=== PATIENT | female | born 2000 | race Caucasian/White ===

== ENCOUNTER 2020-09-03 12:44 | Emergency (ER) | payer OTHER, SELFPAY ==
--- NOTE | 2020-09-03 12:46 | ED.ALLEREA ---
HPI - Allergic Reaction General Chief complaint: Skin/Abscess/Foreign Body Stated complaint: RASH/LIPS SWELLING & NUMB/SORE THROAT Time Seen by Provider: 09/03/20 12:46 Source: patient and RN notes reviewed History of Present Illness HPI narrative: Patient is a 20-year-old female who presents the urgent care with complaints of poison linus, lip swelling and a scratchy throat. Patient states that she is been seen at another urgent care in her hometown a couple weeks ago and was told to use [id number] topical creams and an linus spray. Patient states that she has been using the [id number] medications without any improvement to the poison linus. Patient states that approximately 1 hour ago she started to have the scratchy throat and tingling in her lips. Patient does have blisters to the bottom lip. Denies of any new make-up, lip gloss, medications, creams, lotions or detergents. Patient denies of any new foods or any known allergies. Patient denies of any shortness of breath, cough or difficulty breathing. Patient does have a history of some anxiety and does take medication for ADHD. No other acute complaints. No acute distress noted. Patient aware of the plan of care. Some parts of this dictation were generated by voice recognition software and may contain typographical and/or grammatical inaccuracies. Related Data Home Medications Medication Instructions Recorded Confirmed albuterol sulfate 1 puff INHALATION PRN PRN 09/03/20 09/03/20 dextroamphetamine-amphetamine 20 mg PO DAILY 09/03/20 09/03/20 norethindrone-ethin estradiol 1 tablet PO DAILY 09/03/20 09/03/20 [Alyacen /35 ()] propranolol 10 mg PO DAILY 09/03/20 09/03/20 venlafaxine 37.5 mg PO DAILY 09/03/20 09/03/20 Allergies Allergy/AdvReac Type Severity Reaction Status Date / Time No Known Allergies Allergy Verified 09/03/20 12:58 Review of Systems Review of Systems: Narrative: CONSTITUTIONAL: Denies fever, chills, or sweats. EYES: Denies visual changes, redness, or discharge. ENT: Denies rhinorrhea, congestion, otalgia. Reports of scratchy throat and tingling in the lips CARDIOVASCULAR: Denies chest pain, palpitations, or edema. RESPIRATORY: Denies cough or dyspnea. GASTROINTESTINAL: Denies abdominal pain, nausea, vomiting, or diarrhea. GENITOURINARY: Denies dysuria or hematuria. SKIN: Reports of itchy poison linus to the torso and left lower arm MUSCULOSKELETAL: Denies back pain, joint pain, or myalgia. NEUROLOGIC: Denies headache, numbness, or weakness. All other systems reviewed are negative, except as documented in HPI. PMFSH Comments At the time of my signature, I reviewed and agree with the nursing past medical, surgical, social, and family history. There is no relevant family history pertinent to the patient complaint. Exam Narrative: Exam Narrative: GENERAL: This is a well-nourished, well-developed patient, in no apparent distress. HEAD: normocephalic, atraumatic. EYES: PERRL. Sclera clear/white. Vision is grossly intact. EARS: External ears normal, auditory canals clear and without drainage, TMs normal without perforation. Hearing grossly intact. NOSE: External nose normal with no obvious nasal discharge, nares without redness, no rhinorrhea. THROAT: Mucous membranes moist, posterior pharynx clear. No tonsillar edema, erythema, exudate. Scattered pinpoint blisters noted to the inside of the lower lip NECK: Neck supple, non-tender without lymphadenopathy, masses or thyromegaly. No notable soft tissue swelling upon swallowing. CARDIOVASCULAR: Regular rate and rhythm without murmurs, gallops, or rubs. RESPIRATORY: Clear to auscultation. Breath sounds equal bilaterally. No wheezes, rales, or rhonchi. SKIN: Scattered dried [place] dermatitis noted to the left lower arm and torso NEURO: awake, alert, and oriented to person, place and time. There were no obvious focal neurologic abnormalities. EXTREMITIES: No clubbing, cyanosis, or edema. Course Vital
[2020-09-03 12:54] VITALS: BP 137/94; PULSE 103; RESP 16; TEMP 37.1; O2SAT 99
[2020-09-03] MEDS: predniSONE 20 MG TABLET 60 MG PO (13:04)
== END 2020-09-03 13:10 | disposition home or self-care (01) ==
PROVIDERS: Emergency Provider Nurse Practitioner Family
DX: L23.7 Allergic contact dermatitis due to plants, except food (principal); J45.909 Unspecified asthma, uncomplicated; F32.9 Major depressive disorder, single episode, unspecified
CPT/HCPCS: 99213; G0463; J7512

== ENCOUNTER 2021-01-06 18:59 | Emergency (ER) | payer OTHER, SELFPAY ==
--- NOTE | 2021-01-06 19:03 | ED.GENADULT ---
HPI - General Adult General Chief complaint: Nausea/Vomiting/Diarrhea Stated complaint: NAUSEA Time Seen by Provider: 01/06/21 19:03 Source: patient, RN notes reviewed and old records reviewed Mode of arrival: ambulatory Limitations: no limitations History of Present Illness HPI narrative: 20-year-old female presents to the [facility] with complaints of nausea. Patient states on her aunt and sister were vomiting. She vomited on Tuesday. Has not vomited since. Has had nausea since. Patient states that on Tuesday she feverish but did not take her temperature. Denies chance of , last menstrual period 2 weeks ago. Denies any urinary symptoms, frequency, urgency or burning. Denies chest pain or abdominal pain. Related Data Home Medications Medication Instructions Recorded Confirmed albuterol sulfate 1 puff INHALATION PRN PRN 09/03/20 09/03/20 dextroamphetamine-amphetamine 20 mg PO DAILY 09/03/20 09/03/20 norethindrone-ethin estradiol 1 tablet PO DAILY 09/03/20 09/03/20 [Alyacen 1/35 ()] propranolol 10 mg PO DAILY 09/03/20 09/03/20 venlafaxine 37.5 mg PO DAILY 09/03/20 09/03/20 Allergies Allergy/AdvReac Type Severity Reaction Status Date / Time No Known Allergies Allergy Verified 09/03/20 12:58 Review of Systems Review of Systems: All systems reviewed & are unremarkable except as noted in HPI and below Constitutional: Constitutional: Reports no additional constitutional complaints, Denies chills and Denies fever(s) Eyes: Eyes: Reports no additional eye complaints ENT: Reports system reviewed and no additional complaints, except as documented Cardiovascular: Cardiovascular: Reports no additional cardiovascular complaints and Denies chest pain Respiratory: Respiratory: Denies cough and Denies dyspnea Gastrointestinal: Gastrointestinal: Reports as per HPI, Denies abdominal pain, Denies bloating, Denies constipation, Denies diarrhea, Reports nausea and Reports vomiting Genitourinary: Genitourinary: Reports no additional female genitourinary complaints Musculoskeletal: Musculoskeletal: Reports no additional musculoskeletal complaints Integumentary/Breasts: Skin/Breast: Reports system reviewed and no additional complaints, except as docu Neurologic: Reports system reviewed and no additional complaints, except as documented Psychiatric: Psychiatric: Reports no additional psychiatric complaints Allergic/Immunologic: Allergic/Immunologic: Reports no additional allergic/immunologic complaints PMFSH Past Medical History Medical History (Updated 01/06/21 @ 19:13 by Amisha Garcia) ADHD Tachycardia Surgical History Surgical History (Updated 01/06/21 @ 19:14 by Amisha Garcia) No significant past surgical history Social History Social History (Updated 01/06/21 @ 19:14 by Amisha Garcia) Living arrangements: with family Occupation/Education: student Gender identity (if verbalized by the patient): Female Comments At the time of my signature, I reviewed and agree with the nursing past medical, surgical, social, and family history. There is no relevant family history pertinent to the patient complaint. Exam Const: General: healthy appearing, no acute distress and alert Nutritional Appearance: well nourished Orientation/consciousness: patient oriented x3 Limitations: no limitations HENMT: Head: normal to inspection Ears: external ears normal Eyes: Conjunctivae: conjunctivae normal Pupils: Equal, round and reactive pupils present Neck: Neck: normal visual inspection, no lymphadenopathy and no meningeal signs Chest: Chest palpation & inspection: normal inspection of the chest Resp: Effort & Inspection: normal respiratory effort and no use of accessory muscles Auscultation: clear to auscultation bilaterally, no crackles, no rales, no rhonchi and no wheezes Cardio: Rate: regular rate Rhythm: regular rhythm GI: GI Palp: Yes Soft to palpation, No Tenderness to palpation pr
[2021-01-06 19:04] VITALS: BP 126/78; PULSE 97; RESP 12; TEMP 36.5; O2SAT 100
== END 2021-01-06 19:16 | disposition home or self-care (01) ==
PROVIDERS: Emergency Provider Nurse Practitioner
DX: R11.0 Nausea (principal)
CPT/HCPCS: 99213; G0463

== ENCOUNTER 2021-03-02 14:53 | Emergency (ER) | payer OTHER, SELFPAY ==
[2021-03-02 15:02] VITALS: BP 132/80; PULSE 92; RESP 16; TEMP 36.7; O2SAT 100
--- NOTE | 2021-03-02 15:15 | ED.SKABFB ---
HPI - Skin/Abscess/Foreign Bdy General Chief complaint: Skin/Abscess/Foreign Body Stated complaint: rash all over Time Seen by Provider: 03/02/21 15:05 Source: patient, RN notes reviewed and old records reviewed History of Present Illness HPI narrative: 20 year old female who resents to express care with complaints of rash to her upper abdomen and chest and also to her back for the past 2 weeks. Patient has red raised scattered rash to her chest and back which is not itchy and has no burning sensation to rash area. Patient reports that she went to [place] over [place] and she has been in tanning bed but denies no one else having rash. She denies any new medications, food, laundry products,lotions, body soap or any exposure to animals. Patient reports that she has applied some hydrocortisone to rash with no improvement. Related Data Home Medications Medication Instructions Recorded Confirmed albuterol sulfate 1 puff INHALATION PRN PRN 09/03/20 09/03/20 dextroamphetamine-amphetamine 20 mg PO DAILY 09/03/20 09/03/20 norethindrone-ethin estradiol 1 tablet PO DAILY 09/03/20 09/03/20 [Alyacen 1/35 ()] propranolol 10 mg PO DAILY 09/03/20 09/03/20 venlafaxine 37.5 mg PO DAILY 09/03/20 09/03/20 Allergies Allergy/AdvReac Type Severity Reaction Status Date / Time No Known Allergies Allergy Verified 09/03/20 12:58 Review of Systems Review of Systems: CONSTITUTIONAL: Denies fever, chills, or sweats. EYES: Denies visual changes, redness, or discharge. ENT: Denies rhinorrhea, congestion, sore throat, or otalgia. CARDIOVASCULAR: Denies chest pain, palpitations, or edema. RESPIRATORY: Denies cough or dyspnea. GASTROINTESTINAL: Denies abdominal pain, nausea, vomiting, or diarrhea. GENITOURINARY: Denies dysuria or hematuria. SKIN: Positive for rash to upper abdomen and back which does itch or burn. MUSCULOSKELETAL: Denies back pain, joint pain, or myalgia. NEUROLOGIC: Denies headache, numbness, or weakness. PSYCHIATRIC: Positive history of anxiety or depression. All systems reviewed & are unremarkable except as noted in HPI and below [facility] Past Medical History Medical History (Updated 03/02/21 @ 15:20 by Oralia Abdullahi NP) ADHD Anxiety Tachycardia Surgical History Surgical History (Updated 01/06/21 @ 19:14 by Amisha Garcia) No significant past surgical history Family History Family History (Updated 03/02/21 @ 16:32 by Oralia Abdullahi NP) Mother Asthma Social History Social History (Updated 03/02/21 @ 16:31 by Oralia Abdullahi NP) Smoking status: Never smoker Alcohol intake: current Alcohol use details: occasional social Substance use: never Living arrangements: with family Occupation/Education: student Gender identity (if verbalized by the patient): Female Comments At time of signature, agree with nursing past medical, surgical, social and family history. There is no relevant family history pertinent to the presenting complaint Exam Narrative: GENERAL: Well-appearing, well-nourished, and in no acute distress. HEAD: Normocephalic, atraumatic. EYES: PERRLA and EOMI. ENT: Nares clear, no rhinorrhea or epistaxis. Mucous membranes moist. TMs normal with good light reflex. Throat pink with no lesions or exudates or tonsillar enlargement. NECK: Supple. No lymphadenopathy CHEST: Clear to auscultation. No respiratory distress. SaO2 100% on room air HEART: Regular rate and rhythm. No murmur heard. Normal peripheral pulses. ABDOMEN: Soft, nontender, nondistended, normal active bowel sounds. EXTREMITIES: Normal range of motion. No edema. SKIN: Warm, dry, red scattered rash noted to upper trunk and back which is not itching or burning for 2-week duration. Positive for recent travel and use of tanning bed, no one else in household has rash NEURO: No focal deficits. Alert and oriented x3. Course Course Level of Care: Express Care Visit Vital Signs Vital signs: Vital Signs Temperature
== END 2021-03-02 15:27 | disposition home or self-care (01) ==
PROVIDERS: Emergency Provider Registered Nurse
DX: L25.9 Unspecified contact dermatitis, unspecified cause (principal); F90.9 Attention-deficit hyperactivity disorder, unspecified type; F41.9 Anxiety disorder, unspecified
CPT/HCPCS: 99213; G0463

== ENCOUNTER 2022-02-17 16:35 | Emergency (ER) | payer OTHER, SELFPAY ==
[2022-02-17 16:42] VITALS: BP 142/101; PULSE 129; RESP 20; TEMP 36.9; O2SAT 100
--- NOTE | 2022-02-17 17:21 | ED.URI ---
HPI - URI/Sore Throat General Chief Complaint: Upper Respiratory Infection Stated Complaint: NAUSEA/SORE THROAT/CONGESTION/LONGORIA Time Seen by Provider: 02/17/22 17:20 Source: patient, family, RN notes reviewed and old records reviewed Mode of arrival: ambulatory Limitations: no limitations History of Present Illness HPI Narrative: 21 year old female who presents to [facility] with complaints of sore throat, nausea, sinus congestion, and headache, general body aches, has felt hot and cold and is unsure if any fevers since she has been taking Tylenol and Ibuprofen. Patient reports that sister had flu last week and her father tested positive for COVID over the weekend and she has been around both of them in the past 7 days of her symptoms. Patient has not had COVID of Flu shot. MD elicited complaint: cough and sore throat Onset (ago): week(s) (1) Pain scale (0-10): 4 Treatments prior to arrival: acetaminophen and ibuprofen Related Data Home Medications Medication Instructions Recorded Confirmed albuterol sulfate 90 mcg/actuation 1 puff inhalation PRN PRN 09/03/20 02/17/22 aerosol inhaler Shortness Of Breath dextroamphetamine-amphetamine 20 20 mg PO DAILY 09/03/20 02/17/22 mg tablet norethindrone 1 mg-ethinyl 1 tablet PO DAILY 09/03/20 02/17/22 estradiol 35 mcg tablet (Alyacen) propranolol 10 mg tablet 10 mg PO DAILY 09/03/20 02/17/22 Allergies Allergy/AdvReac Type Severity Reaction Status Date / Time No Known Allergies Allergy Verified 02/17/22 16:56 Review of Systems Review of Systems: CONSTITUTIONAL:reports malaise, chills, sweats, or fever. EYES: Denies visual changes, redness, or discharge. ENT: Reports rhinorrhea, congestion, sinus pain,no otalgia positive for sore throat. CARDIOVASCULAR: Denies chest pain, palpitations, or edema. RESPIRATORY: Reports cough.? Denies dyspnea. GASTROINTESTINAL: Denies abdominal pain, nausea, vomiting, diarrhea SKIN: Denies rash or itching. MUSCULOSKELETAL: reports myalgia. NEUROLOGIC: reports headache. All systems reviewed & are unremarkable except as noted in HPI and below PMFSH Past Medical History Medical History (Updated 02/17/22 @ 17:42 by Oralia Abdullahi NP) ADHD Anxiety Tachycardia Surgical History Surgical History No significant past surgical history Family History Family History Mother Asthma Social History Social History Smoking status: Never smoker Alcohol intake: current Alcohol use details: occasional social Substance use: never Gender identity (if verbalized by the patient): Female Comments At time of signature, agree with nursing past medical, surgical, social and family history. There is no relevant family history pertinent to the presenting complaint Exam Narrative: GENERAL: Well-appearing, well-nourished, and in no acute distress. HEAD: Normocephalic EYES: PERRLA, conjunctivae clear ENT: Nares clear, turbinates edematous and erythematous, clear discharge. Mucous membranes moist. TM pearly martinez with dull light reflex bilaterally; no tragal tenderness. Oropharynx erythematous without lesions. Tonsils red enlarged and with exudate on right tonsil, no drooling, no hoarseness, no trismus, uvula midline.pain NECK: Supple. No lymphadenopathy CHEST: Clear to auscultation, breath sounds equal. No wheezing, rhonchi, rales, or stridor. No respiratory distress, speaks in full sentences.cough noted SAO2 99% on room air HEART: Regular rate and rhythm. No murmur heard. SKIN: Warm, dry, no rash. NEURO: Alert and oriented x3. PSYCH: Normal mood and affect Course Course Emergency Course: Patient is aware of diagnosis, understands and agrees to treatment plan.? Anticipatory guidance given.? Patient agrees to follow-up as directed and is aware of r
[2022-02-17 17:50] VITALS: BP 136/90; PULSE 116; RESP 18; O2SAT 99
== END 2022-02-17 17:50 | disposition home or self-care (01) ==
PROVIDERS: Emergency Provider Registered Nurse
DX: J01.90 Acute sinusitis, unspecified (principal); Z20.822 Contact with and (suspected) exposure to COVID-19; F90.9 Attention-deficit hyperactivity disorder, unspecified type
CPT/HCPCS: 87081; 87426; 87804; 99213; C9803; G0463

== ENCOUNTER 2022-08-16 17:44 | Emergency (ER) | payer OTHER, SELFPAY ==
[2022-08-16 17:58] VITALS: BP 145/98; PULSE 106; RESP 16; TEMP 36.9; O2SAT 99
--- NOTE | 2022-08-16 17:59 | ED.URI ---
HPI - URI/Sore Throat General Chief Complaint: Upper Respiratory Infection Stated Complaint: Sore throat, pain in ear, body aches Time Seen by Provider: 08/16/22 18:00 History of Present Illness HPI Narrative: 22-year-old female presents for complaint of sore throat and right ear pain, mild body aches and chills; onset this morning. Has not taken anything for symptoms. Denies sick contacts. Denies shortness of breath, wheezing, vomiting. Related Data Home Medications Medication Instructions Recorded Confirmed dextroamphetamine-amphetamine 20 20 mg PO DAILY 09/03/20 08/16/22 mg tablet norethindrone 1 mg-ethinyl 1 tablet PO DAILY 09/03/20 08/16/22 estradiol 35 mcg tablet (Alyacen) propranolol 10 mg tablet 10 mg PO DAILY 09/03/20 08/16/22 Allergies Allergy/AdvReac Type Severity Reaction Status Date / Time No Known Allergies Allergy Verified 08/16/22 17:51 Review of Systems Review of Systems: CONSTITUTIONAL: Reports body aches, fever, chills, sweats. EYES: Denies visual changes, redness, or discharge. ENT: Reports sore throat denies rhinorrhea, congestion, or otalgia. CARDIOVASCULAR: Denies chest pain, palpitations, or edema. RESPIRATORY: Denies dyspnea. GASTROINTESTINAL: Denies abdominal pain, nausea, vomiting, or diarrhea. SKIN: Denies rash, itching, or wounds. MUSCULOSKELETAL: Denies back pain, joint pain, or myalgia. NEUROLOGIC: Denies headache PMFSH Past Medical History Medical History (Updated 08/16/22 @ 18:09 by Hattie Carrillo APRN) ADHD Anxiety Hypertension Tachycardia Surgical History Surgical History No significant past surgical history Family History Family History Mother Asthma Social History Social History Smoking status: Never smoker Alcohol intake: current Alcohol use details: occasional social Substance use: never Living arrangements: with family Occupation/Education: student Gender identity (if verbalized by the patient): Female Exam Narrative: GENERAL: well-appearing, no acute distress. EYES: conjunctivae clear ENT: Mucous membranes moist. TM pearly martinez with normal light reflex bilaterally; no tragal tenderness. Oropharynx erythematous without lesions. Tonsils enlarged 1+ with exudate bilaterally. No drooling, no hoarseness, no trismus, uvula midline. No tripod positioning, hot potato voice, or soft palate swelling. NECK: Supple. No lymphadenopathy CHEST: Clear to auscultation, breath sounds equal. No respiratory distress, speaks in full sentences. HEART: Regular rate and rhythm. No murmur heard. SKIN: Warm, dry, no rash. NEURO: Alert and oriented x3. Course Course Emergency Course: Patient is aware of diagnosis, understands and agrees to treatment plan. Anticipatory guidance given. Patient agrees to follow-up as directed and is aware of reasons to seek care at the emergency department. Portions of this record may have been created with voice recognition software Level of Care: Express Care Visit MDM - URI/Sore Throat MDM Narrative Medical decision making narrative: Neg strep result reviewed with pt. Will treat for strep based on PE and cc. Similar presentation 02/2022, advised close f/u with pcp. Advise supportive treatments. Patient is appropriate for outpatient treatment and follow-up. Differential Diagnosis Differential diagnosis: Likely upper respiratory infection, viral infection and pharyngitis Discharge Plan Discharge Clinical Impression: Exudative tonsillitis Patient Disposition: Home, Self-Care Condition: Stable Instructions: Antibiotic Form, Tonsillitis (ED) Additional Instructions: Strep test was negative (not detected), and it will be sent for culture. If the culture is positive, you will be notified. - Take the antibiotic as dir
== END 2022-08-16 18:09 | disposition home or self-care (01) ==
PROVIDERS: Emergency Provider Nurse Practitioner Family
DX: J03.90 Acute tonsillitis, unspecified (principal); I10 Essential (primary) hypertension; F90.9 Attention-deficit hyperactivity disorder, unspecified type
CPT/HCPCS: 87081; 87880; 99213; G0463

== ENCOUNTER 2023-03-02 18:56 | Emergency (ER) | payer OTHER, SELFPAY ==
--- NOTE | ~2023-03-02 | XR_ITS ---
EXAMINATION: XR chest 2V DATE: 03/02/2023 19:23 INDICATION: Wheezing. Shortness of breath. TECHNIQUE: Frontal and lateral views of the chest were obtained. COMPARISON: None. FINDINGS: There is no pneumonia, pleural effusion, or pneumothorax. The heart size is normal. IMPRESSION: 1. No acute cardiopulmonary disease. Reviewed, dictated and finalized at location [facility] [employer]
[2023-03-02 19:00] VITALS: BP 151/97; PULSE 106; RESP 16; TEMP 36.8; O2SAT 100
--- NOTE | 2023-03-02 19:18 | ED.SOB ---
HPI - SOB/Dyspnea General Chief Complaint: Shortness of Breath/Dyspnea Stated Complaint: SOB Time Seen by Provider: 03/02/23 19:10 Source: patient and RN notes reviewed Mode of arrival: ambulatory Limitations: no limitations History of Present Illness HPI Narrative: Patient presents today complaining shortness of breath. She describes this further as difficulty exhaling. This is worse when she lays flat. Symptoms began 4 days ago, improved yesterday, then worsened again today. Patient was sick with cough and cold symptoms 2 weeks ago. States she does have a residual sore throat, and also reports her cough resolved yesterday. When she was ill she took cold medicine, but she has not tried any [id number] medication for her shortness of breath symptoms. She denies chest pain, wheezing, recent fever. Related Data Home Medications Medication Instructions Recorded Confirmed dextroamphetamine-amphetamine 20 20 mg PO DAILY 09/03/20 03/02/23 mg tablet norethindrone 1 mg-ethinyl 1 tablet PO DAILY 09/03/20 03/02/23 estradiol 35 mcg tablet (Alyacen) propranolol 10 mg tablet 10 mg PO DAILY 09/03/20 03/02/23 Allergies Allergy/AdvReac Type Severity Reaction Status Date / Time No Known Allergies Allergy Verified 03/02/23 19:07 Review of Systems Review of Systems: CONSTITUTIONAL: Denies body aches, fever, chills, or sweats. EYES: Denies visual changes, redness, or discharge. ENT: Denies rhinorrhea, congestion, sore throat, or otalgia. CARDIOVASCULAR: Denies chest pain, palpitations, or edema. RESPIRATORY: Denies cough. + shortness of breath GASTROINTESTINAL: Denies abdominal pain, nausea, vomiting, or diarrhea. GENITOURINARY: Denies dysuria or hematuria. SKIN: Denies rash, itching, or wounds. MUSCULOSKELETAL: Denies back pain, joint pain, or myalgia. NEUROLOGIC: Denies headache, numbness, tingling, or weakness. PSYCH: Denies depression or anxiety. [facility] Past Medical History Medical History ADHD Anxiety Hypertension Tachycardia Surgical History Surgical History No significant past surgical history Family History Family History Mother Asthma Social History Social History Smoking status: Never smoker Alcohol intake: current Alcohol use details: occasional social Substance use: never Living arrangements: with family Occupation/Education: student Gender identity (if verbalized by the patient): Female Comments At time of signature, I have reviewed and agree with nursing past medical, surgical, social and family history unless otherwise noted. Please see nursing chart for further information. There is no relevant family history pertinent to the presenting complaint Exam Narrative: GENERAL: Well-appearing, well-nourished, and in no acute distress. HEAD: Normocephalic, atraumatic. EYES: EOMI. No redness or drainage. Conjunctivae normal. ENT: Mucous membranes pink and moist. NECK: Normal AROM. CHEST: No respiratory distress. Slight inspiratory wheeze in the bilateral upper lobes, otherwise clear. HEART: Regular rate and rhythm. No murmur appreciated. EXTREMITIES: Normal range of motion. No edema. Denies calf pain or swelling. SKIN: Warm, dry, no rash. Capillary refill normal. Normal skin turgor. NEURO: No focal deficits. Alert and oriented x3. Gait steady. PSYCH: Normal affect. No signs of depression or anxiety. Course Course Level of Care: Express Care Visit Vital Signs Vital signs: Vital Signs Temperature 98.2 F 03/02/23 19:00 Pulse Rate 106 H 03/02/23 19:00 Respiratory Rate 16 03/02/23 19:00 Blood Pressure 151/97 H 03/02/23 19:00 Pulse Oximetry 100 03/02/23 19:00 Temperature 98.2 F 03/02/23 19:00
== END 2023-03-02 19:35 | disposition home or self-care (01) ==
PROVIDERS: Emergency Provider Nurse Practitioner
DX: J40 Bronchitis, not specified as acute or chronic (principal); F90.9 Attention-deficit hyperactivity disorder, unspecified type; I10 Essential (primary) hypertension
CPT/HCPCS: 71046; 99213; G0463